=== PATIENT | male | born 1980 | race Hispanic/Latino ===

== ENCOUNTER 2020-07-12 03:44 | Emergency (ER) | payer OTHER ==
[~2020-07-12] VITALS: Ht 188 cm; Wt 90.7 kg
== END 2020-07-12 04:18 | disposition home or self-care (01) ==
LOC: ED 03:44
DX: S61.214A Laceration without foreign body of right ring finger without damage to nail, initial encounter (principal); W22.8XXA Striking against or struck by other objects, initial encounter; I10 Essential (primary) hypertension; F17.200 Nicotine dependence, unspecified, uncomplicated
CPT/HCPCS: 12001; 99283-25